=== PATIENT | male | born 1965 | race Caucasian/White ===

== ENCOUNTER 2018-04-28 17:55 | Emergency (ER) | payer BC ==
[~2018-04-28] VITALS: Ht 365.8 cm; Wt 115.9 kg
[2018-04-28] MEDS ORDERED: normal saline 1000ML IV soln IVB ONE (18:00)
[2018-04-28 18:10] LABS: ABG BASE EXCESS 0.8 mmol/L (-2.0-3.0); ABG HCO3 23.9 mmol/L (22.0-26.0); ABG OXYGEN SATURATION 95.9 % (95-98); ABG PCO2 (T) 34.9 mmHg (35.0-48.0); ABG PH (T) 7.454 (7.350-7.450); ABG PO2 (T) 77.1 mmHg (83-108); ALLEN'S TEST Positive; FCOHb 0.3 % (0.5-1.5); FMetHb 0.3 % (0.3-1.12); FO2Hb 95.3 % (94-100); TOTAL HEMOGLOBIN 19.2 G/dl (14.0-18.0)
[2018-04-28 18:19] LABS: CLARITY,URINE CLEAR (Clear); COLOR,URINE STRAW (Yellow); GLUCOSE, URINE NEGATIVE (Neg); KETONES,URINE NEGATIVE (Neg); LEUKOCYTE ESTERASE ,URINE NEGATIVE (Neg); NITRITES, URINE NEGATIVE (Neg); OCCULT BLOOD,URINE TRACE-INTACT (Neg); PROTEIN,URINE 30 mg/dl (Neg); UROBILINOGEN,URINE 0.2 E.U/dL (0.2-1.0)
[2018-04-28 18:20] LABS: BASOPHILS % (AUTO) 0.2 % (0-1); EOSINOPHILS # (AUTO) 0.2 X10'3 (0-0.9); EOSINOPHILS % (AUTO) 2.4 % (0-6); HEMATOCRIT 52.1 % (42.0-52.0); LYMPHOCYTES # (AUTO) 1.2 X10'3 (1.1-4.8); LYMPHOCYTES % (AUTO) 16.9 % (21-51); MEAN CORPUSCULAR HGB CONC 34.5 % (33.0-36.5); MEAN CORPUSCULAR VOLUME 86.9 FL (78-98); MEAN PLATELET VOLUME 8.1 FL (7.4-10.4); MONOCYTES # (AUTO) 0.5 X10'3 (0-0.9); MONOCYTES % (AUTO) 6.3 % (2-12); NEUTROPHILS # (AUTO) 5.4 X10'3 (1.8-7.7); NEUTROPHILS % (AUTO) 74.2 % (42-75); PLATELET COUNT 268 X10'3 (140-440); RED CELL DISTRIBUTION WIDTH 12.8 % (11.5-14.5); WHITE BLOOD COUNT 7.2 X10'3 (4.5-11.0)
--- NOTE | 2018-04-28 18:21 | NUR ---
No triage completed prior to my interaction with this patient.
[2018-04-28 18:24] LABS: UA COLLECTION TYPE NON-SPECIFIED
[2018-04-28 18:32] LABS: URINE AMPHETAMINE SCREEN NEGATIVE (Neg); URINE BARBITUATE SCREEN NEGATIVE (Neg); URINE BENZODIAZEPINES SCREEN NEGATIVE (Neg); URINE CANNABINOID SCREEN NEGATIVE (Neg); URINE COCAINE SCREEN NEGATIVE (Neg); URINE METHADONE SCREEN NEGATIVE (Neg); URINE OPIATE SCREEN NEGATIVE (Neg); URINE PHENCYCLIDINE SCREEN NEGATIVE (Neg)
[2018-04-28 18:34] LABS: MUCUS STRANDS NONE SEEN /LPF (Neg); SQUAMOUS EPITHELIAL CELL,UR NONE SEEN /LPF (FEW)
[2018-04-28 18:35] LABS: BACTERIA,URINE NONE SEEN /HPF (Neg); RBC,URINE 0-2 /HPF (0-2); WBC,URINE 0-4 /HPF (0-4)
[2018-04-28 18:37] LABS: ALANINE AMINOTRANSFERASE 40 U/L (12-78); ALBUMIN/GLOBULIN RATIO 1.1 (1.1-1.5); ALKALINE PHOSPHATASE 82 IU/L (46-116); ANION GAP 11 (8-16); ASPARTATE AMINO TRANSFERASE 35 U/L (10-37); BILIRUBIN,TOTAL 0.7 MG/DL (0.1-1.0); BLOOD UREA NITROGEN 14 MG/DL (7-18); BUN/CREATININE RATIO 11.7 (5.4-32.0); CHLORIDE 102 MMOL/L (99-107); GLUCOSE 92 MG/DL (70-104); SODIUM 140 MMOL/L (135-145); TOTAL CARBON DIOXIDE 26.7 MMOL/L (24-32); TOTAL PROTEIN 7.5 G/DL (6.4-8.2); eGFR 63 ML/MIN
--- NOTE | 2018-04-28 18:43 | NUR ---
Patient resting comfortably and calmly in bed. IV initiated and fluids started. Patient has family member to bedside visiting.
[2018-04-28 18:48] LABS: ETHANOL < 0.010 GM/DL (0.0-0.010)
[2018-04-28 18:59] LABS: PROTHROMBIN TIME 10.1 SECONDS (9.0-12.0)
--- NOTE | 2018-04-28 20:57 | NUR ---
REPORT REC'D FROM DEBORA HERMOSILLO. PT ARRIVED ON FLOOR 2049, AMBULATORY WITH FAMILY MEMBER AT BEDSIDE. PT IS SETTLED, CALM, NO S/S OF DISTRESS.
--- NOTE | 2018-04-28 21:33 | NUR ---
Markeldanny Miller, son of Pt, would like to have a phone call if his dad is transferred. [phone].
--- NOTE | 2018-04-28 22:00 | NUR ---
, Yas Miller, called for update on condition and any new plan. At this time, no new plan. She requests a call when new information is available. [phone].
--- NOTE | 2018-04-29 05:38 | NUR ---
PIV d/c'd from right hand with no incident.
--- NOTE | 2018-04-29 06:53 | NUR ---
Pt lying in bed on right side sleeping. In no distress at this time.
--- NOTE | 2018-04-29 08:12 | NUR ---
Patient sitting and eating breakfast with at bedside. No distress observed.
--- NOTE | 2018-04-29 10:05 | NUR ---
Client alert and meeting with [facility] clinician.
--- NOTE | 2018-04-29 12:10 | NUR ---
Pt awake and resting in bed. A&O X4. Calm and cooperative. Met with [facility] clinician and understands he is on a 5150 hold and they are looking for an in-pt bed. Is amenable to developing a plan while in-pt for dealing with and reacting to life stressors differently. States his actions in last 24 hrs were a "one time thing" and he denies SI at this time. Met with this AM as well and the relationship appeared supportive.
[2018-04-29] MEDS ORDERED: METO50TA7 PO (14:56)
[2018-04-29] MEDS ORDERED: ATEN50TA8 PO (14:56)
[2018-04-29 16:33] VITALS: BP 156/101
== END 2018-04-29 17:40 ==
LOC: ER 17:56
DX: T58.92XA Toxic effect of carbon monoxide from unspecified source, intentional self-harm, initial encounter (principal); R41.0 Disorientation, unspecified; R40.20 Unspecified coma; I10 Essential (primary) hypertension; Z98.890 Other specified postprocedural states; Y92.59 Other trade areas as the place of occurrence of the external cause
CPT/HCPCS: 36415; 36600; 71045; 80053; 80305; 80320; 81001; 82803; 84443; 84484; 85018; 85025; 85610; 96360; 99285; J7030

== ENCOUNTER 2018-04-29 13:25 | Inpatient (IN) | payer BC ==
[~2018-04-29] VITALS: Ht 182.9 cm; Wt 114.3 kg
[2018-04-29] MEDS ORDERED: acetaminophen 325mg tablet PO PRN ×2 (14:50)
[2018-04-29] MEDS ORDERED: mag hydrox/Alum hydrox/simeth 30ml oral suspension PO PRN (14:50)
[2018-04-29] MEDS ORDERED: tuberculin, purif. prot. deriv. 5 units/0.1ml ID ONE (14:50)
[2018-04-29] MEDS ORDERED: magnesium hydroxide 30ml (MOM) UD suspension PO PRN (14:50)
[2018-04-29] MEDS ORDERED: METO50TA7 PO (14:56)
[2018-04-29] MEDS ORDERED: ATEN50TA8 PO (14:56)
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
[2018-04-29 20:00] VITALS: BP 164/106
[2018-04-29] MEDS ORDERED: atenolol 50mg tablet PO SCH ×2 (20:00)
[2018-04-29] MEDS ORDERED: traZODone 50mg tablet PO PRN (22:35)
[2018-04-29] MEDS ORDERED: atenolol 50mg tablet PO ONE (22:55)
--- NOTE | 2018-04-30 02:36 | NUR ---
Nursing Progress Note: Chief Complaint: Depression suicide attempt Legal hold:5150 Client on voluntary/involuntary status for DTS. Report received from nurse with use of BOB Olvera. Why are they here: [employer] brought him to the ED because they found him in his garage full of fumes from his car running, and client had spoken of suicide to family members recently. Diagnosis/presenting symptoms: Depression Assessment Pt well groomed wearing hospital scrubs. What has happened this shift: Pt in room at start of shift. Awake alert affect anxious. Pt Reluctant to talk about circumstances that led up to hospitalization. 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 Denies SI says he is not depressed just "bummed out". Denies any history of depression till "a couple of months ago" when he thought about suicide but did not attempt it. Pt in exam room talking with Dr. Nicholson for a long time this shift. her to visit very attentive and concerned about pt. Said she will return at 7am to drop off clothing. S/I, H/I: denies A/VH: denies Sleep: sleeping at this time ADL's: Independent Group attendance: Not this shift Were meds taken: Yes Any med S/E[] Mental Status Exam Appearance: well groomed Eye contact: fair Behavior: anxious, guarded Speech: clear appropriate volume Affect: anxious Thought process: logical Thought Content: wants to go home Cognition: good Insight: fair Judgment:fair Interventions PRN's used:[] Therapeutic interventions:[] Restraints/seclusion/emergency medication:[] Justification of Continued Inpatient Treatment: Treatment of depression, pt danger to self.
[2018-04-30 07:31] VITALS: BP 127/81
[2018-04-30] MEDS: metoprolol succinate 25mg (24-HOUR) SR. Tablet PO SCH (07:34)
[2018-04-30] MEDS: duloxetine 30mg CAPSULE.DR PO SCH (07:34)
[2018-04-30] MEDS: pantoprazole 40mg Tablet.DR PO SCH (07:34)
[2018-04-30 08:00] VITALS: BP 127/81
[2018-04-30] MEDS ORDERED: metoprolol succinate 25mg (24-HOUR) SR. Tablet PO SCH (08:00)
--- NOTE | 2018-04-30 17:13 | NUR ---
Nursing Progress Note: Chief Complaint: Suicide attempt, pt brought in to the ER after found pt unconscious in garage with vehicle running. Legal hold: 5150 Client on involuntary status for DTS. Report received from DEBORA Malagon with use of SBAR. Why are they here: Pt is here due to severe suicide attempt when he was found unconsious in his garage with a vehicle running. The suicide attempt had a high lethality risk as the was not expected home from work for several hours. Pt has had multiple suicide attempts since 2017. Diagnosis/presenting symptoms: Suicidal Ideation, Depression Assessment What has happened this shift: The pt was pleasant with assessment, but guarded and unwilling to share feelings or information. He denied depression, anxiety, SI, A/V H. Pt talked about attending anger management classes. The pt is refusing to allow staff to talk to his . The pt is guarding his responses to staff and acts like everything in life is fine. S/I, H/I: Pt denies A/VH: Pt denies Sleep:Napping ADL's:Independent Group attendance:Yes Were meds taken:Yes Any med S/E: No Mental Status Exam Appearance: Clean and appropriate Eye contact: Direct Behavior: Guarded Speech: Articulate Mood: Guarded, not showing feelings Affect: Constricted Thought process: Linear and connected Thought Content: Controlling what information he shares with staff. Cognition: Good Insight: Poor Judgment: Poor Interventions PRN's used: None Therapeutic interventions: 1:1 therapeutic assessment, active listening, group therapy, Q 15 min safety checks, medication education Restraints/seclusion/emergency medication:No Justification of Continued Inpatient Treatment: Pt had a severe potentially lethal suicide attempt, which is reported to be the third attempt since 2017. He is guarded and indicates everything is fine. Pt has a strong family history of completed suicides. Pt has a high risk of suicide if discharged at this time.
[2018-04-30 20:11] VITALS: BP 141/81
[2018-04-30] MEDS ORDERED: traZODone 50mg tablet PO SCH (21:00)
[2018-04-30] MEDS: quetiapine 100mg tablet PO SCH (21:40)
[2018-04-30] MEDS: atenolol 50mg tablet PO SCH (21:42)
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
[2018-05-01 07:48] LABS: HEMOGLOBIN A1C 5.3 % (4.5-6.2)
[2018-05-01 07:49] LABS: CHOL/HDL RATIO 4.8 (0.00-4.99); CHOLESTEROL 220 MG/DL (0-200); HDL CHOLESTEROL 46 MG/DL (35-60); LDL CHOLESTEROL 156 MG/DL (50-100); TRIGLYCERIDES 130 MG/DL (20-135)
[2018-05-01 08:00] VITALS: BP 115/69
[2018-05-01] MEDS: metoprolol succinate 25mg (24-HOUR) SR. Tablet PO SCH (08:41)
[2018-05-01] MEDS: duloxetine 30mg CAPSULE.DR PO SCH (08:41)
[2018-05-01] MEDS: pantoprazole 40mg Tablet.DR PO SCH (08:41)
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
--- NOTE | 2018-05-01 18:49 | NUR ---
Art Therapy Group (Continued): Patient was initially guarded, yet seemed to take thought in the art therapy activity today, making a mask and discussing in group process what his feelings were that he "hid behind: sadness, anger and loneliness. This was the patients first art therapy group, his response seemed positive AEB by his completion and ability to talk about his work. Patient was able to listen as others in group shared/discussed their art expressions. He did not initiate any interaction with others, yet remained attentive to the process. Alicia Finley MA, SPORTS REPORTER #[id number] [facility], Art Therapist Addendum: 05/01/18 at 1852 by Alicia Finley SS Amended: Links added.
[2018-05-01 19:00] VITALS: BP 140/77
[2018-05-01] MEDS: quetiapine 100mg tablet PO SCH ×2 (21:03→22:30)
[2018-05-01] MEDS: atenolol 50mg tablet PO SCH (21:03)
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
[2018-05-02 07:51] VITALS: BP 109/69
[2018-05-02] MEDS: metoprolol succinate 25mg (24-HOUR) SR. Tablet PO SCH (08:07)
[2018-05-02] MEDS: duloxetine 30mg CAPSULE.DR PO SCH (08:08)
[2018-05-02] MEDS: pantoprazole 40mg Tablet.DR PO SCH (08:08)
--- NOTE | 2018-05-02 12:20 | NUR ---
Initial: Pt admitted to [facility] with depression with SI. Pt currently on a regular diet with documented PO intake 75-100% meeting nutrient needs. LBM 05/01. No edema or wounds. No nutrition diagnosis at this time. Will continue to follow. Recommendations: 1) Continue with regular diet 2) Weekly wt Addendum: 05/02/18 at [address] Amended: Links added.
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
[2018-05-02] MEDS ORDERED: quetiapine 100mg tablet PO PRN (15:40)
[2018-05-02 20:20] VITALS: BP 148/84
[2018-05-02] MEDS: atenolol 50mg tablet PO SCH (20:48)
[2018-05-02] MEDS ORDERED: quetiapine 100mg tablet PO SCH (21:00)
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
[2018-05-03] MEDS: duloxetine 30mg CAPSULE.DR PO SCH (07:40)
[2018-05-03] MEDS: pantoprazole 40mg Tablet.DR PO SCH (07:40)
[2018-05-03] MEDS: metoprolol succinate 25mg (24-HOUR) SR. Tablet PO SCH (07:40)
[2018-05-03 07:45] VITALS: BP 117/78
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
[2018-05-03 19:46] VITALS: BP 154/87
[2018-05-03] MEDS: atenolol 50mg tablet PO SCH (21:57)
[2018-05-03] MEDS ORDERED: quetiapine 100mg tablet PO ONE ×2 (22:10)
--- NOTE | 2018-05-03 22:20 | NUR ---
Nursing Note: Chief Complaint: Depression Legal hold: 5150 Client on involuntary status for DTS Report received from nurse with use of SBAR: DEBORA ornelas Why are they here: Pt. admitted for major depression and S/I after suicide attempt involving carbon monoxide poisoning with running truck parked in his garage. His found him unconscious and called the police who placed him on a 5150. This is reportedly his third attempt since 2017 and he has a hx of successful suicide attempts in his family (brother). Per pt. report he has been having difficulties with his marriage (domestic violence charge pending), problems with his two step-daughters r/t dependency and money issues, difficulty maintaining employment, and chronic pain issues. He is guarded and reluctant to speak about his MH issues. Diagnosis/presenting symptoms: Pt. denies S/I and reports only a small amount of depression, however states, "I don't talk a lot and my emotions just build up and I loose control." Assessment What has happened this shift: Pt was in group room at change of shift. 1:1 assessment completed in group room. Pt states his day was good, reports 1:1 meeting w Terrence today. Reports appetite was good and sleep was better w/increased seroquel. Pt spent evening visiting w his and meeting w/ S/I, H/I: Denies A/VH: N/A Sleep: naps ADL's: Independent Group attendance: x2 Were meds taken: yes Any med S/E: No Mental Status Exam Appearance:Neat and well dressed Eye contact: Fair Behavior: Pleasant, but guarded and withdrawn Speech: Soft, WNL Mood: Cooperative Affect: Blunted Thought process: Poverty of thought, blocking, and denial regarding the seriousness of mental health issues Thought Content: Some phobia regarding being in a MH facility and missing work Cognition: A&O X4 Insight: Poor Judgment: Poor Interventions PRN's used: None Therapeutic interventions: Established rapport, provided active listening, maintained a safe and therapeutic environment, ensured pt. contract for safety, provided medication education, encouraged group attendance, and maintained Q 15 min safety checks. Restraints/seclusion/emergency medication: N/A Justification of Continued Inpatient Treatment: Pt. continues to require medication adjustments and therapeutic interventions. He would be at risk for DTS and readmission if discharged at this ti Addendum: 05/03/18 at 2224 by Jasmin Peralta RN Pt seroquel increased to 300mg tonight Addendum: 05/03/18 at 2309 by Jasmin Peralta RN Legal Hold is a 5920
[2018-05-04] MEDS: pantoprazole 40mg Tablet.DR PO SCH (07:33)
[2018-05-04] MEDS: metoprolol succinate 25mg (24-HOUR) SR. Tablet PO SCH ×2 (07:34→07:45)
[2018-05-04 08:00] VITALS: BP 112/62
[2018-05-04] MEDS ORDERED: duloxetine 30mg CAPSULE.DR PO SCH (08:00)
--- NOTE | 2018-05-04 12:54 | NUR ---
Nursing Progress Note: Chief Complaint: two recent suicide attempts pt brought in to the ER after found pt unconscious in garage with vehicle running. Legal hold: 5250 Client on involuntary status for DTS. Report received from DEBORA Elise with use of SBAR. Why are they here: Pt is here due to severe suicide attempt when he was found unconscious in his garage with a vehicle running. The suicide attempt had a high lethality risk as the was not expected home from work for several hours. Pt has had multiple suicide attempts since 2017. Diagnosis/presenting symptoms: Suicidal Ideation, Depression Assessment What has happened this shift: Patient is very pleasant, but guarded when speaking about his suicide attempt. He seems to be minimizing the gravity of the situation. He has recently agreed to go to counseling and is attending anger management. Patient was up at change of shift and eager to watch football. He socialized with staff and other patients but was not very communicative regarding why he is here. S/I, H/I: Pt denies A/VH: Pt denies Sleep:Napping ADL's:Independent Group attendance: No group today Were meds taken:Yes Any med S/E: No Mental Status Exam Appearance: Clean and appropriate Eye contact: Direct Behavior: Guarded Speech: Clear Mood: Guarded, not showing feelings Affect: Restricted Thought process: Linear and goal oriented Thought Content: Controlling what information he shares with staff. Cognition: Good Insight: Poor Judgment: Fair Interventions PRN's used: None Therapeutic interventions: 1:1 therapeutic assessment, active listening, group therapy, Q 15 min safety checks, medication education Restraints/seclusion/emergency medication:No Justification of Continued Inpatient Treatment: Pt had a severe potentially lethal suicide attempt, which is reported to be the third attempt since 2017. He is guarded and indicates everything is fine. Pt has a strong family history of completed suicides. Pt has a high risk of suicide if discharged at this time.
[2018-05-04] MEDS ORDERED: DULO60CA64 PO (16:26)
[2018-05-04] MEDS ORDERED: METO50TA7 PO (16:26)
[2018-05-04] MEDS ORDERED: QUET300T2 PO (16:26)
[2018-05-04] MEDS ORDERED: ATEN50TA8 PO (16:26)
[2018-05-04] MEDS ORDERED: PANT40TA4 PO (16:26)
--- NOTE | 2018-05-04 17:32 | NUR ---
Patient will discharge tonight. He has signed his discharge paperwork and completed his inventory. His medications were called in to the 24 hour [facility] on [address]. His Emilie will be by to pick him up sometime after 6.
--- NOTE | 2018-05-04 18:17 | NUR ---
discharge note: Patient off unit at 1816 with his and all of his belongings. He will follow up with his PCP and [facility] counseling.
[2018-05-04 19:55] VITALS: BP 122/80
[2018-05-04] MEDS ORDERED: quetiapine 100mg tablet PO SCH (21:00)
== END 2018-05-04 18:50 | disposition home or self-care (01) | DRG 881 ==
LOC: ADULT MH 13:25
PROVIDERS: ADMIT Psychiatry & Neurology Psychiatry; ATTEND Psychiatry & Neurology Psychiatry
DX: F34.1 Dysthymic disorder (principal); R45.851 Suicidal ideations; I10 Essential (primary) hypertension; K21.9 Gastro-esophageal reflux disease without esophagitis; M19.90 Unspecified osteoarthritis, unspecified site; Z79.899 Other long term (current) drug therapy; Z82.3 Family history of stroke; Z88.0 Allergy status to penicillin
CPT/HCPCS: 36415; 80061; 83036; 84443; 87070